=== PATIENT | male | born 1995 | race African-American/Black ===

== ENCOUNTER 2020-06-01 12:26 | Emergency (ER) | payer MEDICAID, OTHER ==
[~2020-06-01] VITALS: Ht 185.4 cm; Wt 85.1 kg
[2020-06-01 12:54] VITALS: BP 134/72
--- NOTE | 2020-06-01 13:27 | NUR ---
pt medicated per emar. pt tolerated well.
--- NOTE | 2020-06-01 14:18 | NUR ---
Patient given discharge instructions and they have confirmed that they understand the instructions. Patient ambulatory with steady gait.
== END 2020-06-01 14:20 | disposition home or self-care (01) ==
LOC: ED 14:00
DX: F41.1 Generalized anxiety disorder (principal)
CPT/HCPCS: 99283

== ENCOUNTER 2020-08-11 12:55 | Emergency (ER) | payer MEDICAID ==
[~2020-08-11] VITALS: Ht 177.8 cm; Wt 75.0 kg
--- NOTE | 2020-08-11 13:22 | NUR ---
PT C/O LEFT FOOT PAIN. PT HAS HAD LEFT FOOT PAIN FOR A LONG TIME AND IS WAITING FOR SURGERY IN SEPTEMBER. PT HAS A PINKIE TOE DEFORMITY SINCE BUT THE PINKIE TOE HAS MOVED FURTHER OUT OF PLACE CAUSING FURTHER PAIN. PT ALSO AT ED FOR RX REFILL FOR PAIN MEDICATIONS.
[2020-08-11] MEDS ORDERED: OXYcodone/APAP 10/325MG TABLET PO ONE (13:30)
[2020-08-11] MEDS ORDERED: OXYcodone/APAP 10/325MG TABLET ONE (13:41)
[2020-08-11 14:07] VITALS: BP 115/69
--- NOTE | 2020-08-11 14:07 | NUR ---
PT TOLERATED PO PAIN MEDS WELL. VERBALIZED UNDERSTANDING OF DISCHARGE INSTRUCTIONS. HERE TO DRIVE PT HOME.
== END 2020-08-11 14:10 | disposition home or self-care (01) ==
LOC: ED 14:02
DX: M79.672 Pain in left foot (principal); G57.62 Lesion of plantar nerve, left lower limb
CPT/HCPCS: 99283